=== PATIENT | male | born 1975 | race Two or more races ===

== ENCOUNTER 2022-05-22 03:49 | Day surgery (SDC) | payer BC ==
[2022-05-15 17:59] VITALS: BMI 21.6
[2022-05-22] MEDS ORDERED: MIDAZOLAM HCL 2 MG/2 ML SINGLE DOSE VIAL ONE (10:25)
[2022-05-22] MEDS ORDERED: ELECTROLYTE-148 SOLN 1,000 ML IV SCH (11:00)
[2022-05-22 11:12] VITALS: RESP 18
[2022-05-22 13:21] VITALS: BP 127/80; PULSE 73; TEMP 97.8
== END 2022-05-22 12:00 | disposition home or self-care (01) ==
LOC: JASU-SURG 03:49
PROVIDERS: ATTEND Urology
PROC: 0TF4XZZ Fragmentation in Left Kidney Pelvis, External Approach (ICD-10-PCS; principal; 2022-05-22 10:00)
DX: N20.0 Calculus of kidney (principal)